=== PATIENT | male | born 1970 | race African-American/Black ===

== ENCOUNTER 2016-04-27 05:04 | Emergency (ER) | payer OTHER ==
[~2016-04-27] VITALS: Ht 188 cm; Wt 192.6 kg
[~2016-04-27 05:04] MED LIST: ASPI1TAB69 PO; LISI10TA3 PO; PROMSYP3 PO
[2016-04-27 05:12] VITALS: BP 145/93; PULSE 74; RESP 20; TEMP 99.2; O2SAT 96
--- NOTE | 2016-04-27 06:33 | RADHPO ---
EXAM DATE/TIME: 04/27/2016 06:20 [facility] COMPARISON: ANKLE LEFT COMPLETE ([id number]), April 14, 2013, 21:35. INDICATIONS : Left ankle pain after fall and twisting ankle outwards. MEDICAL HISTORY : None. SURGICAL HISTORY : None. ENCOUNTER: Initial ACUITY: 1 day PAIN SCORE: 6/10 LOCATION: Left lateral ankle FINDINGS: Three view exam was performed of the left ankle. The bony structures are in normal alignment. No ev idence of fracture, dislocation, or soft tissue swelling. The ankle mortise is intact. No radiopaqu e foreign bodies are seen. Bony mineralization is normal. CONCLUSION: No acute disease. Pino Gaming MD on April 27, 2016 at 6:32 Board Certified Radiologist. This report was verified electronically.
[2016-04-27] MEDS ORDERED: IBUP800T23 PO (06:45)
--- NOTE | 2016-04-27 06:46 | PD ---
HPI Chief Complaint: Injury Time Seen by Provider: 06:08 Travel History International Travel<30 days: No Contact w/Intl Traveler<30days: No Traveled to known affect area: No History of Present Illness HPI The patient is a 46-year-old male that inverted his left ankle at approximately 4:30 this morning. He complains of lateral ankle pain and swelling. He is not fractured this before but he states he has injured this ankle in the past. He denies any previous surgery on the ankle. He is a education officer. PFSH Past Medical History Hx Anticoagulant Therapy: Yes (ASA) Asthma: Yes (CHILDHOOD) Cardiovascular Problems: Yes (HTN) Diabetes: Yes Patient Takes Glucophage: No Respiratory: Yes (SLEEP APNEA) Influenza Vaccination: No Past Surgical History Abdominal Surgery: Yes (HERNIA A CHILD) Social History Alcohol Use: Yes (OCCAS) Tobacco Use: No Substance Use: No Allergies-Medications (Allergen,Severity, Reaction): Coded Allergies: Shellfish (Verified Allergy, Severe, Anaphylaxis, 04/27/16) Reported Meds & Prescriptions Reported Meds & Active Scripts Active Reported Aspirin 81 Mg Tabdr 81 Mg PO DAILY Lisinopril 10 Mg Tab 10 Mg PO DAILY Review of Systems Except as stated in HPI: all other systems reviewed are Neg Physical Exam Narrative GENERAL: The patient is alert, oriented 3 he is a large man. His vital signs show blood pressure 145/93 but otherwise normal. SKIN: Warm and dry. HEAD: Atraumatic. Normocephalic. EYES: Pupils equal and round. No scleral icterus. No injection or drainage. ENT: No nasal bleeding or discharge. Mucous membranes pink and moist. NECK: Trachea midline. No JVD. CARDIOVASCULAR: Regular rate and rhythm. No murmur appreciated. RESPIRATORY: No accessory muscle use. Clear to auscultation. Breath sounds equal bilaterally. GASTROINTESTINAL: Abdomen soft, non-tender, nondistended. Hepatic and splenic margins not palpable. MUSCULOSKELETAL: No obvious deformities. No clubbing. No cyanosis. No edema. There is swelling and exquisite tenderness on the anterior talofibular ligament as well as the calcaneal fibular ligament. No obvious bony deformity is present. Good capillary refill and pinprick is present distally on the foot. NEUROLOGICAL: Awake and alert. No obvious cranial nerve deficits. Motor grossly within normal limits. Normal speech. PSYCHIATRIC: Appropriate mood and affect; insight and judgment normal. Data Data Last Documented VS Vital Signs Date Time Temp Pulse Resp B/P Pulse Ox O2 Delivery O2 Flow Rate FiO2 04/27/16 05:12 99.2 74 20 145/93 96 Orders Ankle, Complete ([id number]) (04/27/16 06:08) MDM Medical Decision Making Medical Screen Exam Complete: Yes Emergency Medical Condition: Yes Medical Record Reviewed: Yes Differential Diagnosis Fracture ankle, sprained ankle, contusion ankle Narrative Course The patient has a left ankle sprain. Plan: He'll be given a stirrup splint ice, elevation and off work for 7 days. 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 Diagnosis Primary Impression: Left ankle sprain Med/Other Pt SpecificInfo: Prescription(s) given Scripts Ibuprofen 800 Mg [id number] Mg PO TID #45 TAB Ref 0 Prov:Peter Salter MD 04/27/16 Disposition: 01 DISCHARGE HOME Condition: Stable Peter Salter MD Apr 27, 2016 06:45
[2016-04-27] MEDS ORDERED: IBUPROFEN 800 MG TAB PO ONE (07:00)
== END 2016-04-27 06:57 | disposition home or self-care (01) ==
LOC: PHED 05:04
DX: S93.402A Sprain of unspecified ligament of left ankle, initial encounter (principal); I10 Essential (primary) hypertension; E11.9 Type 2 diabetes mellitus without complications; G47.30 Sleep apnea, unspecified; X50.1XXA Overexertion from prolonged static or awkward postures, initial encounter; Y93.9 Activity, unspecified; Y92.9 Unspecified place or not applicable; Y99.8 Other external cause status
CPT/HCPCS: 73610; 99283; L1906

== ENCOUNTER 2017-03-31 01:48 | Emergency (ER) | payer OTHER ==
[~2017-03-31] VITALS: Ht 193 cm; Wt 170.0 kg
[~2017-03-31 01:48] MED LIST changes: +IBUP1TAB7 PO; -PROMSYP3 PO
[2017-03-31] MEDS ORDERED: EPINEPHrine HCL (1:10,000) 1 MG/10 ML SYRINGE IV ONE ×2 (01:49)
[2017-03-31] MEDS ORDERED: ROCURONIUM INJ 50 MG/5 ML VIAL ONE (01:53)
--- NOTE | 2017-03-31 03:10 | PD ---
HPI Chief Complaint: Code Blue Time Seen by Provider: 02:10 Travel History International Travel<30 days: No Contact w/Intl Traveler<30days: No Traveled to known affect area: No History of Present Illness HPI Patient is 47 years old and arrives undergoing ACLS protocol CPR. Prior to ER arrival the patient received 100 bicarb, 4 rounds of epinephrine, and Combitube intubation. Asystole was the rhythm observed on monitor. Patient received Narcan twice. interosseous access was obtained in the right lower leg. [place] unresponsive. Evidently previously patient was engaged in sexual intercourse and became unresponsive and fell, a witnessed event. CPR started upon the [place] [employer] arrival. EMS reports approximately 30 minutes of ACLS protocol CPR prior to ER arrival. Again asystole observed throughout. Upon arrival here the Combitube was replaced with a 7 oh endotracheal tube. Copious vomiting was observed with partially chewed food, at least 700 or 800 cc. 5 additional rounds of epinephrine given here. Transthoracic ultrasound revealed cardiac akinesis which was then followed by pronounced at the time of to have been 2:09 AM. PFSH Past Medical History Hx Anticoagulant Therapy: Yes (ASA) Asthma: Yes (CHILDHOOD) Cardiovascular Problems: Yes (HTN) Diabetes: Yes Respiratory: Yes (SLEEP APNEA) Past Surgical History Abdominal Surgery: Yes (HERNIA A CHILD) Social History Alcohol Use: Yes (OCCAS) Tobacco Use: No Substance Use: No Allergies-Medications (Allergen,Severity, Reaction): Coded Allergies: shellfish derived (Unverified Allergy, Severe, Anaphylaxis, 09/20/16) Reported Meds & Prescriptions Reported Meds & Active Scripts Active Ibuprofen 800 Mg Tab 800 Mg PO TID Reported Aspirin 81 Mg Tabdr 81 Mg PO DAILY Lisinopril 10 Mg Tab 10 Mg PO DAILY Review of Systems ROS Limitations: Clinical Condition Physical Exam Narrative GENERAL: 47-year-old male unresponsive GCS 3 T, copious emesis about the face clothing backboard Heart rate 0, respiratory rate 0 SKIN: Warm and dry. HEAD: Atraumatic. Normocephalic. EYES: Pupils fixed and dilated. ENT: No nasal bleeding or discharge. Mucous membranes pink and moist. NECK: Trachea midline. No JVD. CARDIOVASCULAR: Asystole. RESPIRATORY: No spontaneous respiration. Combitube assisted ventilations inadequate. GASTROINTESTINAL: Abdomen soft, non-tender, nondistended. Hepatic and splenic margins not palpable. MUSCULOSKELETAL: Extremities without clubbing, cyanosis, or edema. No obvious deformities. NEUROLOGICAL: GCS 3 T. PSYCHIATRIC: Unable to assess Data Data Orders Orders Rocuronium Inj (Zemuron Inj) (03/31/17 01:53) MDM Medical Decision Making Medical Screen Exam Complete: Yes Emergency Medical Condition: Yes Medical Record Reviewed: Yes Differential Diagnosis Cardiopulmonary arrest, aspiration, polysubstance abuse Narrative Course Please refer to the history of present illness. Procedures Procedure Narrative After the risks and benefits were discussed the following procedure was performed: INTUBATION: The patient was put in optimal position for the procedure. Rapid sequence intubation was initiated by me using 50 milligrams of rocuronium IV. The patient was intubated with a 7-0 cuffed endotracheal tube. Tube placement was confirmed by visualization of the tube and balloon passing through the cords, capnometry and subsequent chest x-ray. Breath sounds were equal and well aerated bilaterally postintubation. No breath sounds over stomach. Patient tolerated procedure well. Diagnosis Primary Impression: Disposition: 20 Condition: Bradly Tracy MD Mar 31, 2017 03:10
== END 2017-03-31 06:22 | disposition expired ==
LOC: NEPE 01:48 → NEPI 06:22
DX: I46.9 Cardiac arrest, cause unspecified (principal); J45.909 Unspecified asthma, uncomplicated; I10 Essential (primary) hypertension; E11.9 Type 2 diabetes mellitus without complications; G47.30 Sleep apnea, unspecified; Z79.82 Long term (current) use of aspirin; Z79.899 Other long term (current) drug therapy
CPT/HCPCS: 31500; 99285; J0171